=== PATIENT | male | born 1995 | race Caucasian/White ===

== ENCOUNTER 2020-03-23 13:47 | Inpatient (IN) | payer OTHER, SELFPAY ==
[~2020-03-23] VITALS: Ht 185.4 cm; Wt 89.4 kg
[2020-03-23 13:48] VITALS: Ht 185.4 cm; Wt 89.4 kg
[2020-03-23 14:21] LABS: PLATELET COUNT 280 x10^3mcL (130-400); RED CELL DISTRIBUTION WIDTH 13.7 % (11.5-14.5)
--- NOTE | 2020-03-23 14:24 | NUR ---
RECEIVED CARE OF PT. PT AAOX4. AMBULATORY. C/O UPPER ABDOMINAL PAIN, N/V/D. SYMPTOMS STARTED AT 0300. ABDOMEN SOFT, NONDISTENDED. DENIES ANY RECENT EXPOSURE TO COVID 19. DENIES SOB/CP. PLACED ON PULSE OXIMETER. SEEN BY ERMD. IV MEDS AND FLUIDS STARTED ORDERED. WILL CONT TO MONITOR.
[2020-03-23 14:53] LABS: CARBON DIOXIDE 22.9 mmol/L (21-32); CHLORIDE SERUM 100 mmol/L (98-107); CREATININE SERUM 1.4 mg/dL (0.7-1.3); GFR1 > 60 mL/min; GLUCOSE SERUM 164 mg/dL (74-106); POTASSIUM SERUM 4.1 mmol/L (3.5-5.1); SODIUM SERUM 137 mmol/L (136-145)
[2020-03-23 14:56] LABS: BAND NEUTROPHIL 3 % (0-10); MONOCYTE 6 % (0-7); PLATELET MORPHOLOGY PLATELETS NORMAL; SEGMENTED NEUTROPHILS 89 % (37-75); rbc morphology (normal/abnorm) NORMAL (NORMAL)
[2020-03-23 14:57] LABS: ALKALINE PHOSPHATASE 105 U/L (46-116); ALT/SGPT 22 U/L (16-63); AST/SGOT 16 U/L (15-37); BILIRUBIN TOTAL 0.8 mg/dL (0.20-1.00); LIPASE 66 IU/L (73-393)
[2020-03-23 15:00] LABS: TOTAL PROTEIN, SERUM 9.2 g/dL (6.4-8.2)
--- NOTE | 2020-03-23 15:02 | NUR ---
PT TO CT SCANNER.
--- NOTE | 2020-03-23 15:10 | NUR ---
PT RETURNED FROM CT SCANNER. UNABLE TO PROVIDE URINE SAMPLE AT THIS TIME.
--- NOTE | 2020-03-23 15:40 | NUR ---
URINE DIP DONE. WILL CONT TO MONITOR.
[2020-03-23] MEDS ORDERED: LEXAPRO20 MG PO (16:04)
--- NOTE | 2020-03-23 16:30 | NUR ---
MEDICAL STUDENT LIN AT BEDSIDE FOR EVAL. WILL CONT TO MONITOR.
--- NOTE | 2020-03-23 16:53 | NUR ---
RECIEVED REPORT FROM MAMADOU BRYANT. AWAITING PT ARRIVAL TO UNIT.
[2020-03-23 17:25] LABS: MAGNESIUM 1.6 mg/dL (1.8-2.4); PHOSPHOROUS 2.7 mg/dL (2.5-4.9)
[2020-03-23 17:27] LABS: CHOLESTEROL/HDL RATIO 5.1
--- NOTE | 2020-03-23 17:43 | NUR ---
PT TRANSFERED TO TELE VIA MONITOR. PT ADMITTED FOR GASTROENTERITIS. NO DROPLET PRECAUTIONS ORDERED.
[2020-03-23 17:54] LABS: FREE T4 1.08 ng/dL (0.76-1.46); FREE THYROXINE INDEX 2.9 ug/dL (1.4-4.5); T4(THYROXINE) 8.5 ug/dL (4.7-13.3)
--- NOTE | 2020-03-23 18:06 | NUR ---
PT ARRIVED ON UNIT ON A GUERNEY AT 1747. PT IS A/O X4, CALM AND COOPERATIVE. S1 AND S2 NOTED, REGULAR RATE AND RHYTHM. PULSES PALP, NO EDEMA NOTED. LUNG SOUNDS CLEAR BILAT, PT ON RA. NO ACUTE RESP DISTRESS NOTED. BOWEL SOUNDS ACTIVE X 4, ABD IS SOFT, FLAT, NONTENDER. LAST STOOL TODAY WAS WATERY AND LOOSE. PT IS ABLE TO VOID PER BRP, BUT HAS NOT BEEN ABLE TO SINCE THIS MORNING. SKIN IS WARM, DRY, INTACT, COLOR APPROPRIATE FOR ETHNICITY. PT IS AMBULATORY, NO WEAKNESS NOTED. WILL CONTINUE TO MONITOR.
[2020-03-23 18:08] LABS: UA SPECIFIC GRAVITY >=1.030 (1.005-1.035); microscopic required? YES; urine erythrocyte NEGATIVE (NEGATIVE)
[2020-03-23 18:11] VITALS: BP 128/73
[2020-03-23 18:28] LABS: AMPHETAMINE QUAL UR NONE DETECTED (See below)
--- NOTE | 2020-03-23 18:59 | NUR ---
PT STATES HIS STOMACH ALWAYS HURTS WHEN HE TAKES IBUPROFEN. GAVE NORCO EMAR FOR 6/10 ABD PAIN. NS INFUSING TO IV RAC. WILL ENDORSE TO NEXT SHIFT.
--- NOTE | 2020-03-23 19:10 | NUR ---
RECEIVED REPORT FROM KAYLAH BRYANT. PT AAOX4 AND DENIES NEGRETE/DIZZINESS. PT ON TELE #35, NSR WITH HR 81. PT DENIES CP/PRESSURE. PT PULSES PALPABLE AND CAP REFILL <3 SEC. PT LUNG SOUNDS CTA ON RA. PT BREATHING E/U. PT DENIES SOB OR RESP DISTRESS. PT ABD SOFT/ROUND WITH ACTIVE BS X4. PT DENIES N/V/C/D. PT C/O LOOSE BM. PT HAS POOR APPETITE. PT VOIDS FREELY VIA BRP/URINAL. PT IS AMBULATORY. PT SKIN INTACT. PT IV PATENT/INTACT. NS INFUSING WELL AT 100ML/HR. ALL NEEDS MET. CALL LIGHT WITHIN REACH. BED IN LOWEST POSITION. SIDE RAILS X2 UP. WILL CONTINUE TO MONITOR.
[2020-03-23 20:57] VITALS: BP 113/63
--- NOTE | 2020-03-23 22:30 | NUR ---
STOOL SAMPLE COLLECTED FOR OB STOOL AND C. DIFF.
--- NOTE | 2020-03-24 00:52 | NUR ---
PT RESTING COMFORTABLY IN BED WITH EYES CLOSED, EASILY AROUSABLE. NO ACUTE DISTRESS NOTED. PT BREATHING E/U. ALL NEEDS MET. CALL LIGHT WITHIN REACH. BED IN LOWEST POSITION. SIDE RAILS X2 UP. WILL CONTINUE TO MONITOR.
[2020-03-24 05:19] VITALS: BP 117/71
--- NOTE | 2020-03-24 05:33 | NUR ---
PT RESTED COMFORTABLY DURING THE NIGHT, EASILY AROUSABLE. NO ACUTE DISTRESS NOTED DURING THE SHIFT. NS INFUSING WELL AT 100ML/HR. COMFORT AND SAFETY MEASURES MAINTAINED DURING THE NIGHT. ALL QUESTIONS AND CONCERNS ADDRESSED. ALL NEEDS MET. CALL LIGHT WITHIN REACH. BED IN LOWEST POSITION. SIDE RAILS X2 UP. WILL ENDORSE TO DAY SHIFT NURSE.
[2020-03-24 06:32] LABS: BASOPHIL % 0.3 % (0-2); PLATELET COUNT 203 x10^3mcL (130-400); RED CELL DISTRIBUTION WIDTH 13.5 % (11.5-14.5)
[2020-03-24 06:40] LABS: CALCIUM 8.6 mg/dL (8.5-10.1); CARBON DIOXIDE 27.1 mmol/L (21-32); CHLORIDE SERUM 104 mmol/L (98-107); GFR1 > 60 mL/min; GLUCOSE SERUM 93 mg/dL (74-106); POTASSIUM SERUM 3.8 mmol/L (3.5-5.1); SODIUM SERUM 139 mmol/L (136-145)
--- NOTE | 2020-03-24 07:30 | NUR ---
PT RECEIVED FROM PM NURSE. PT IS AWAKE AND RESTING COMFORTABLY IN BED AT THIS TIME. NO FACIAL DISTRESS OR SOB NOTED. PT IS A/OX4. ABLE TO MAKE NEEDS KNOWN. DENIES NEGRETE/DIZZINESS. LUNG SOUNDS CTA. BREATHING E/U ON RA. TELE #33. NSR. DENIES CP/PRESSURE. PULSES EVEN AND PALPABLE. NO EDEMA NOTED. ACTIVE BS X4. ABD SOFT AND ROUND. DENIES N/V/D. BRP. VOIDS FREELY. SKIN INTACT. C/O ABD PAIN BUT REFUSED PAIN MEDICATION AT THIS TIME. IV 20G TO RAC RUNNING NS AT 100CC/HR. INTACT. PATENT. FLUSHES WITH NO DIFFICULTY. BED AT LOWEST POSITION. CALL LIGHT WITHIN REACH. WILL CONTINUE TO MONITOR.
[2020-03-24 08:15] VITALS: BP 111/61
[2020-03-24 09:26] LABS: PLATELET COUNT 181 x10^3mcL (130-400); RED CELL DISTRIBUTION WIDTH 13.6 % (11.5-14.5)
--- NOTE | 2020-03-24 11:00 | NUR ---
PT TRANSFERED FROM TELE TO MED SURG. TELE MONITOR REMOVED AND HANDED TO FORMING MACHINE OPERATOR REGGIE.
[2020-03-24 11:39] LABS: PATH REVIEW for HEMA NO
[2020-03-24 12:58] VITALS: BP 137/70
[2020-03-24 16:06] VITALS: BP 119/64
[2020-03-24] MEDS ORDERED: PEP20 PO (17:30)
[2020-03-24] MEDS ORDERED: PROBIOTIC & ACI1 CAP PO (17:30)
[2020-03-24] MEDS ORDERED: ZOF4 PO (17:30)
[2020-03-24] MEDS ORDERED: FLAGYL500 MG PO (17:45)
[2020-03-24 17:46] VITALS: BP 119/64
--- NOTE | 2020-03-24 18:49 | NUR ---
DISCHARGE INFORMATION DISCUSSED WITH PATIENT. ALL QUESTIONS/CONCERNS ANSWERED. WILL ENDORSE TO PM SHIFT TO REMOVE IV WHEN PATIENT IS READY TO GO HOME.
--- NOTE | 2020-03-24 19:15 | NUR ---
CARE ASSUMED FROM OUTGOING RN. PT RESTING COMFORTABLY IN BED AWAITING TRANSPORTATION TO BE DISCHARGED HOME. WILL DC IV. MEDSURG PT. EVEN AND UNLABORED RESPIRATIONS ON RA. ALL DISCHARGE INSTRUCTIONS AND PAPERWORK GIVEN AND SIGNED. ALL QUESTIONS AND CONCERNS ADDRESSED. WILL CONTINUE TO MONITOR.
--- NOTE | 2020-03-24 19:30 | NUR ---
DC'ED IV TO RAC, CATHETER INTACT, PRESSURE APPLIED. NO BLEEDING NOTED. ALL BELONGINGS NOTED FOR. NO ACUTE DISTRESS NOTED. PT DISCHARGED HOME VIA WHEELCHAIR.
[2020-03-25 09:08] LABS: HELICOBACTER PYLORI IGG QNT 0.44 (0.00-0.79)
== END 2020-03-24 19:28 | disposition home or self-care (01) | DRG 720 ==
LOC: ED 13:47 → DU 16:02 → MU 03-24 09:32
PROVIDERS: Emergency Medicine; ADMIT Internal Medicine; ATTEND Internal Medicine
DX: A41.9 Sepsis, unspecified organism (principal); E86.0 Dehydration; K52.9 Noninfective gastroenteritis and colitis, unspecified; Z79.899 Other long term (current) drug therapy
CPT/HCPCS: 84439; G0378; J2405; J2543; J7030